=== PATIENT | female | born 1995 | race Caucasian/White ===

== ENCOUNTER 2025-02-01 09:28 | Outpatient (AMB) | payer OTHER, SELFPAY ==
--- NOTE | 2025-02-01 09:29 | MHC.OFFVIS ---
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 According to the patient today, in March of 2023 she had a concussion hitting the back of her head. She did not loose consciousness but had worsening of her headaches at that point. Prior to this, she only had occasional headaches but does note history several concussions in the past with sports. Headaches are currently occurring 2-3 times per week and lasting 1-2 hours if she takes Excedrin and rests without medication and rest can last all day. Her headaches are left-sided starting at the occipital area and radiating up the top of her head to the left retro-orbital area. Headaches are throbbing and pulsating and sometimes accompanied by nausea and light sensitivity. She does not have any vision changes, auras, or sensitivity to sound. Bending over can make her headaches worse but aside from this she does not have any positional component. She has in the past had some benefit with physical therapy. She is currently on amitriptyline which she felt initially was helpful but more recently of the 25 mg dose has not been significantly beneficial. She uses Excedrin as needed which can help however with the caffeine, if she takes it late in the day it can keep her awake. Tylenol and ibuprofen have been less effective. She is okay with starting an oral medication for headache management however her goal is to eventually be medication free. Headache characteristics: Time of onset: November 2023 headaches became severe Location: Left-sided occipital Radiation: Left frontal and retro-orbital area Positional component:No Character: Throbbing and pulsating Severity: Moderate to severe Duration: Hours up to a full day Frequency:2-3 times per week Acute aggravating factors:Physical activity Acute relieving factors:Rest and decreased activity Associated symptoms: Nausea and light sensitivity Aura:None Headache triggers:Stress Relation to menses:No Other related background information: Sleep:8-9hours per day and feels well rested in generally Stressors: Retes stress at a 3/10 Hydration: Ateast 60oz per day Caffeine intake:None Alcohol intake:1-2 per week Substance use:None Tobacco use:None Last eye exam:2016 Last dental visit: November 2024. No clenching or grinding History of head injury: Yes, several concussions last in November 2023 Family planning considerations: No plans to become Past medication trials: Amitriptyline- Initially helped but recently does not feel that it is helpful Prior workup: None PFSH Medical History (Updated 02/01/25 @ 10:19 by Lluvia Burgos CNP) Headache Family History (Updated 01/27/25 @ 08:19 by Surya Roblero CMA) Mother Hypothyroidism Rheumatoid arthritis Sister Hypothyroidism Review of Systems Const All systems reviewed & are unremarkable except as noted in HPI and below Physical Exam Vital Signs: Last Vital Signs Pulse 74 02/01/25 09:33 Resp 16 02/01/25 09:33 BP 131/90 H 02/01/25 09:33 Pulse Ox 98 02/01/25 09:33 Oxygen Delivery Method Room Air 02/01/25 09:33 BMI result Body Mass Index 37.6 Const General: cooperative, healthy appearing, comfortable and no acute distress Nutritional Appearance: well nourished Orientation/consciousness: patient oriented x3 Limitations: no limitations HEENT Head: Yes normal to inspection and Yes normocephalic Eyes General: appearance normal, both eyes and all related structures Visual Corral: normal visual corral by confrontation Alignment and Position: alignment normal Periorbital: periorbital findings normal Eyelids: Yes eyelids normal Conjunctivae: conjunctivae normal Sclerae: sclerae normal Direct Ophthalmoscopy: normal light reflex, no papilledema and fundi normal bilaterally Neck Neck: Yes normal visual inspection and Yes full ROM General: Yes no CVA tenderness Back/Spine/Pelvis Other: Bilateral trapezius tightness with some mild tenderness to the left occipital area Back: no CVA tenderness Cervical Spine: normal cervical lordosis Thoracic/Lumbar Spine: thoracic and lumbar spine normal to inspection Neuro General: patient oriented x3 and deep tendon reflexes 2+ bilaterally Cranial nerves: Yes CN's II-XII intact bilaterally and Yes Facial sensation intact/muscles of mastication intact Cognition (Neuro): normal cognition Gait exam (Neuro): Normal gait present Motor exam (neuro): 5/5 motor strength present throughout and no tremor noted Sensory Exam: double simultaneous stimulation for sensation normal Romberg Test: Negative Pupils: Normal pupillary reactivity/response: bilateral Psych Appearance: grossly normal Mental Status: mental status grossly normal Speech and movement: Normal speech and movement present and Clear speech present Affect: normal affect Attitude: cooperative Thought process: Normal thought process present Thought content: Normal thought content present Insight: Good insight present (Psych) Judgement: Good judgement present (Psych) Assessment & Plan Assessment & Plan (1) Post-concussion headache: Code(s): G44.309 - Post-traumatic headache, unspecified, not intractable Category: Medical (2) Migraine without aura and without status migrainosus, not intractable: Code(s): G43.009 - Migraine without aura, not intractable, without status migrainosus Category: Medical (3) Muscle tightness: Code(s): M62.89 - Other specified disorders of muscle Category: Medical (4) Occipital neuralgia of left side: Code(s): M54.81 - Occipital neuralgia Category: Medical Plan Desire is a 29-year-old female patient with a past medical history of heart murmur, right knee pain, and ovarian cysts who is here today for headache evaluation. Headaches may best be classified as prolonged postconcussive however fit into a migraine phenotype but was strong myofascial component. She has only had minimal response to Amitriptyline. Her goal is to eventually be medication free. We discussed nonpharmacological options including physical therapy and tens units at home she is open to these options. I will switch her amitriptyline to cyclobenzaprine and send a referral for physical therapy. For as-needed/acute management, I will send for sumatriptan 50 mg. She was educated on the use of this medication including timing of administration, expected outcomes, and possible side effects. -Taper amitriptyline from 25mg nightly to 12.5mg nightly for 1 week and then stop -Once Amitriptyline is stopped, start cyclobenzaprine 5 mg nightly -PT for myofacial release including dry needling and tens therapy (pt requesting [facility] in [place] where she has gone in the past) -Sumatriptan 50mg as needed -Follow-up in 2 months Orders: Orders PT Evaluation and Treatment Today G43.009 - Migraine without aura, not intractable, without status migrainosus, G44.309 - Post-traumatic headache, unspecified, not intractable, M54.81 - Occipital neuralgia, M62.89 - Other specified disorders of muscle Medications: New sumatriptan succinate take 1 tab at onset of headache; if no relief may repeat 1 tab after at least 2 hrs; max = 4 tabs/24 hr PO 14 tabs 3RF 30 days cyclobenzaprine 5 mg PO BEDTIME 30 tabs 3RF 30 days Coding Level of Care Code New Pt Level 4 (34257) Diagnoses Post-concussion headache G44.309 Migraine without aura and without status migrainosus, not intractable G43.009 Muscle tightness M62.89 Occipital neuralgia of left side M54.81
[2025-02-01 09:33] VITALS: BP 131/90; PULSE 74; RESP 16; O2SAT 98; BMI 37.6
--- OUTSIDE RECORDS SUMMARY | 2025-02-01 11:13 | XMS_ITS | Clinical Summary ---
Author Organization [facility] Address [address] [place] [address] Care Team Providers Care Sheet Metal Duct Installer Apprentice Name Role Phone None, Provider SHAFT HEADMAN Primary Care Provider Unavaila ble Medications hepatitis A vaccine, PF, (HAVRIX) 1,440 PENNIE unit/mL syringeIndicati ons:Travel advice encounter Inject 1 mL into the muscle once for 1 dose. 1 Syringe 04/23/2019 Active typhoid vaccine live oral Ty21a (VIVOTIF) capsuleIndicati ons:Travel advice encounter Take 1 Cap by mouth every 48 hours. Take 1 HOUR BEFORE eating OR 2 HOURS AFTER eating with a FULL GLASS of cool or lukewarm water. 4 Cap 04/23/2019 Active tetanus, diptheria, acellular pertussis vaccine, PF, (ADACEL) IM syringeIndicati ons:Travel advice encounter Inject 0.5 mL into the muscle once for 1 dose. 1 Syringe 04/23/2019 Active atovaquone-prog uaniL (MALARONE) 250-100 mg per tabletIndicatio ns:Travel advice encounter Take 1 Tab by mouth daily. Start two days before. Every day while travel. 7 days post travel. 12 Tab 04/23/2019 Active Immunizations Immunization Administration Dates Next Due Hepatitis A Vaccine Adult (HAVRIX/VAQTA) IM 04/05 Tdap Vaccine =>7YO IM 04/23/2019 Typhoid Vaccine Oral 04/23/2019 Social History Tobacco Use Types Packs/Day Years Used Date Smoking Tobacco: Never Assessed Interpersonal Safety Answer Date Record ed Physically Hurt Never 10/05/2019 Verbally Threaten Not on file 10/05/2019 Comments Unknown Sex and Gender Information Value Date Recorded Sex Assigned at Not on file Legal Sex Female 12:26 EST Gender Identity Female 04/20/2019 12:27 EST Sexual Orientation Not on file Last Filed Vital Signs Vital Sign Reading Time Taken Comments Blood Pressure - - Pulse - - Temperature 36.1 C (96.9 F) 04/23/2019 0957 EST Respiratory Rate - - Oxygen Saturation - - Inhaled Oxygen Concentration - - Weight - - Height - - Body Mass Index - - Plan of Treatment Health Maintenance Due Date Last Done Comments Hepatitis C Screen 1993 Hepatitis B Vaccine (1 of 3 - 19+ 3-dose series) 06/12 COVID-19 Vaccine (2024- season) 2024 Insurance [employer] Care Teams Sheet Metal Duct Installer Apprentice Relationship Specialty Start Date End Date None, Provider, SHAFT HEADMAN PCP - General 04/20/19
--- OUTSIDE RECORDS SUMMARY | 2025-02-01 11:13 | XMS_ITS | Encounter Summary ---
Author Organization [facility] Address [address] [place] [address] Care Team Providers Care Human Resources Training Manager Name Role Phone None, Provider CARPENTER REPAIRER Primary Care Provider Unavaila ble Encounter Details Date Type Department Care Team ([facility] st Contact Info) Description 04/29/2020 Orders Only Non [facility] Ancillary Services Chana Lama, CARPENTER REPAIRER [address], [address] [place] [address] Other specified bacterial intestinal infections Social History Tobacco Use Types Packs/Day Years Used Date Smoking Tobacco: Never Assessed Interpersonal Safety Answer Date Record ed Physically Hurt Never 10/05/2019 Verbally Threaten Not on file 10/05/2019 Comments Unknown Sex and Gender Information Value Date Recorded Sex Assigned at Not on file Legal Sex Female 12:26 EST Gender Identity Female 04/20/2019 12:27 EST Sexual Orientation Not on file documented as of this encounter Plan of Treatment Not on file documented as of this encounter Procedures Procedure Name Priority Date/Time Associated Diagnosis Comments H. PYLORI ANTIGEN Routine 04/28/2020 20: 00 EST Other specified bacterial intestinal infections documented in this encounter Results * H. PYLORI ANTIGEN (04/28/2020 20:00 EST) H. Pylori Negative Negative 05/03/2020 13:37 EST [facility] Feces SPECIMEN FROM RECTUM / Unknown Stool Collect / Unknown 04/28/2020 20:00 EST 04/29/2020 10:38 EST Narrative [facility] - 05/03/2020 13:37 EST Results were obtained with the [employer] [place] [facility] PENNIE. us Chana Lama NP MICROBIOLOGY - GENERAL ORDERAB LES Final Result [facility] [address] [place] [id number] documented in this encounter Visit Diagnoses Diagnosis Other specified bacterial intestinal infections documented in this encounter Care Teams Human Resources Training Manager Relationship Specialty Start Date End Date None, Provider, CARPENTER REPAIRER PCP - General 04/20/19 documented as of this encounter
--- OUTSIDE RECORDS SUMMARY | 2025-02-01 11:13 | XMS_ITS | Encounter Summary ---
Author Organization [facility] Address [address] [place] [id number] Care Team Providers Care Chicken Buyer Name Role Phone None, Provider ROUSTABOUT CREW PUSHER Primary Care Provider Unavaila ble Encounter Details Date Type Department Care Team ([facility] st Contact Info) Description 02/17/2020 Orders Only Non [facility] Ancillary Services Doctor iMr MD Gastroesophageal reflux disease without esophagitis Social History Tobacco Use Types Packs/Day Years [...] Associated Diagnosis Comments H. PYLORI ANTIGEN Routine 02/16/2020 15: 00 EST Gastroesophageal reflux disease without esophagitis documented in this encounter Results * (ABNORMAL) H. PYLORI ANTIGEN (02/16/2020 15:00 EST) H. Pylori Positive(A ) Negative 02/18/2020 13:31 EST [facility] Feces SPECIMEN FROM RECTUM / Unknown Stool Collect / Unknown 02/16/2020 15:00 EST 02/17/2020 15:07 EST Narrative [facility] - 02/18/2020 13:31 EST Results were obtained with the [employer] [facility] PENNIE. Doctor Clarke WEBB MICROBIOLOGY - GENERAL ORDNakita MARTIN Final Result [facility] [address] [place] [address] documented in this encounter Visit Diagnoses Diagnosis Gastroesophageal reflux disease without esophagitis Esophageal reflux documented in this encounter Care Teams Chicken Buyer Relationship Specialty Start Date End Date None, Provider, ROUSTABOUT CREW PUSHER PCP - General 04/20/19 documented as of this encounter
== END 2025-02-01 10:05 | disposition home or self-care (01) ==
LOC: HO.HSM 09:29
PROVIDERS: PCP Family Medicine; Visit Provider Nurse Practitioner
DX: G44.309 Post-traumatic headache, unspecified, not intractable (principal); G43.009 Migraine without aura, not intractable, without status migrainosus; M62.89 Other specified disorders of muscle; M54.81 Occipital neuralgia
CPT/HCPCS: 99204